=== PATIENT | female | born 1950 | race Native Hawaiian/Other Pacific Islander ===

== ENCOUNTER 2016-11-14 13:00 | Emergency (ER) | payer OTHER ==
[~2016-11-14] VITALS: Ht 154.9 cm; Wt 80.7 kg
[~2016-11-14 13:00] MED LIST: ALPR0.5T24 PO; ALTACE5 MG PO; ASPIRIN325 M1 PO; CIPR500T PO; DIPH25CA90 PO; DOCU100C10 PO; HYDR-2748 PO; LIPITOR80 MG PO; PAXIL40 MG PO; PEPCID20 MG PO
[2016-11-14 13:10] VITALS: BP 149/83; TEMP 98.4
[2016-11-14] MEDS ORDERED: HORIZANT300 MG PO (13:29)
[2016-11-14] MEDS ORDERED: ADVIL200 M1 OR (13:32)
[2016-11-14] MEDS ORDERED: ASPIRIN ADULT L81 MG OR (13:33)
[2016-11-14] MEDS ORDERED: blood pressure med PO (13:33)
== END 2016-11-14 14:05 | disposition home or self-care (01) ==
LOC: ED 13:00
DX: G89.29 Other chronic pain (principal); R60.9 Edema, unspecified
CPT/HCPCS: 99281

== ENCOUNTER 2017-02-04 10:20 | Outpatient (CLI) | payer OTHER ==
[~2017-02-04 10:20] MED LIST changes: +ADVIL200 M1 OR; +ASPIRIN ADULT L81 MG OR; +HORIZANT300 MG PO; +blood pressure med PO
[2017-02-04 11:33] LABS: PLATELET COUNT 250 K/uL (152-353)
[2017-02-04 11:50] LABS: POTASSIUM 3.2 mmol/L (3.6-5.2); SODIUM 142 mmol/L (136-145)
== END 2017-02-04 19:12 | disposition home or self-care (01) ==
LOC: LABW 10:20
PROVIDERS: Nurse Practitioner
DX: Z79.899 Other long term (current) drug therapy (principal); Z79.891 Long term (current) use of opiate analgesic; Z51.81 Encounter for therapeutic drug level monitoring
CPT/HCPCS: 36415; 80053; 80061; 80307; 84443; 85027; G0479

== ENCOUNTER 2017-07-15 10:54 | Emergency (ER) | payer OTHER ==
[~2017-07-15] VITALS: Ht 154.9 cm; Wt 79.4 kg
[2017-07-15 12:03] LABS: PLATELET COUNT 226 K/uL (152-353)
[2017-07-15 13:15] VITALS: BP 128/78; TEMP 98.2
== END 2017-07-15 13:17 | disposition home or self-care (01) ==
LOC: ED 10:54
PROVIDERS: Family Medicine
DX: J01.80 Other acute sinusitis (principal); N39.0 Urinary tract infection, site not specified
CPT/HCPCS: 36415; 81000; 85027; 99283

== ENCOUNTER 2018-03-05 08:59 | Emergency (ER) | payer OTHER ==
[~2018-03-05] VITALS: Ht 154.9 cm; Wt 75.3 kg
[2018-03-05 09:04] VITALS: TEMP 97.5
[2018-03-05 11:44] LABS: PLATELET COUNT 235 K/uL (152-353)
[2018-03-05 12:01] LABS: POTASSIUM 4.1 mmol/L (3.6-5.2)
[2018-03-05 15:23] VITALS: BP 132/78
== END 2018-03-05 15:25 | disposition home or self-care (01) ==
LOC: ED 08:59
PROVIDERS: Emergency Medicine
DX: N39.0 Urinary tract infection, site not specified (principal)
CPT/HCPCS: 36415; 80053; 81000; 85027; 87086; 87088; 99283

== ENCOUNTER 2018-04-29 11:02 | Outpatient (CLI) | payer OTHER | END 2018-04-29 23:14 | disposition home or self-care (01) | LOC: MAMMO 11:02 | DX: Z12.31 Encounter for screening mammogram for malignant neoplasm of breast (principal); Z78.0 Asymptomatic menopausal state ==

== ENCOUNTER 2019-01-20 12:11 | Emergency (ER) | payer OTHER ==
[~2019-01-20] VITALS: Ht 154.9 cm; Wt 75.3 kg
[2019-01-20 13:21] LABS: PLATELET COUNT 210 K/uL (152-353)
[2019-01-20 14:50] VITALS: BP 114/70; TEMP 97.8
== END 2019-01-20 14:50 | disposition home or self-care (01) ==
LOC: ED 12:11
PROVIDERS: Family Medicine
DX: J32.8 Other chronic sinusitis (principal); J06.9 Acute upper respiratory infection, unspecified; R05 Cough
CPT/HCPCS: 36415; 80053; 85027; 87502; 99283

== ENCOUNTER 2019-01-28 23:16 | Emergency (ER) | payer OTHER | END 2019-01-28 23:40 | disposition home or self-care (01) | LOC: ED 23:16 | DX: Z01.30 Encounter for examination of blood pressure without abnormal findings (principal) | CPT/HCPCS: 99281 ==

== ENCOUNTER 2019-03-12 11:44 | Observation (INO) | payer OTHER ==
[2019-03-12] VITALS (11 sets, daily range): BP systolic 143–183; BP diastolic 57–91; TEMP 97.4–97.7; Ht 154.9 cm; Wt 79.5 kg
[~2019-03-12] VITALS: Ht 154.9 cm; Wt 79.5 kg
[~2019-03-12 11:44] MED LIST changes: -ADVIL200 M1 OR; +ADVIL200 M1 PO
[2019-03-12 12:50] LABS: PLATELET COUNT 194 K/uL (152-353)
[2019-03-12 13:35] LABS: POTASSIUM 4.2 mmol/L (3.6-5.2); SODIUM 140 mmol/L (136-145)
[2019-03-12] MEDS ORDERED: ALTACE5 MG PO (21:34)
[2019-03-13 04:00] VITALS: BP 150/73; TEMP 97.8
[2019-03-13 08:00] VITALS: BP 141/63; TEMP 97.6
[2019-03-13 12:00] VITALS: BP 149/70; TEMP 97.9
[2019-03-16] MEDS ORDERED: CLOP75TA2 PO ×2 (09:03→09:05)
== END 2019-03-13 15:00 | disposition home or self-care (01) ==
LOC: ED 11:44 → MED/SURG 16:40
PROVIDERS: Family Medicine; ADMIT Internal Medicine
DX: J01.80 Other acute sinusitis (principal); R05 Cough; G45.8 Other transient cerebral ischemic attacks and related syndromes; I10 Essential (primary) hypertension; R10.13 Epigastric pain; M54.89 Other dorsalgia; M79.7 Fibromyalgia; I69.354 Hemiplegia and hemiparesis following cerebral infarction affecting left non-dominant side
CPT/HCPCS: 36415; 80053; 80061; 82550; 83036; 84484; 85027; 93005; 96372; 99220; 99283; G0378; J1650

== ENCOUNTER 2019-08-20 14:18 | Outpatient (CLI) | payer OTHER ==
[~2019-08-20 14:18] MED LIST changes: +CLOP75TA2 PO
== END 2019-08-20 23:21 | disposition home or self-care (01) ==
LOC: MAMMO 14:18
DX: Z12.31 Encounter for screening mammogram for malignant neoplasm of breast (principal)

== ENCOUNTER 2019-10-08 11:01 | Emergency (ER) | payer OTHER ==
[~2019-10-08] VITALS: Ht 154.9 cm; Wt 79.4 kg
[2019-10-08 12:40] LABS: PLATELET COUNT 185 K/uL (152-353)
[2019-10-08 12:41] LABS: POTASSIUM 3.4 mmol/L (3.6-5.2)
[2019-10-08 13:00] VITALS: BP 142/75; TEMP 97.6
== END 2019-10-08 14:45 | disposition home or self-care (01) ==
LOC: ED 11:01
PROVIDERS: Student in an Organized Health Care Education/Training Program
DX: N39.0 Urinary tract infection, site not specified (principal); B34.9 Viral infection, unspecified; E86.0 Dehydration
CPT/HCPCS: 80048; 81000; 83735; 85027; 87040; 87077; 87086; 87088; 87186; 87502; 87651; 93005; 99283

== ENCOUNTER 2020-01-14 15:01 | Outpatient (CLI) | payer OTHER | END 2020-01-14 19:04 | disposition home or self-care (01) | LOC: LABW 15:01 | DX: R05 Cough (principal); R50.9 Fever, unspecified; R06.02 Shortness of breath | CPT/HCPCS: 87502 ==

== ENCOUNTER 2020-04-06 17:52 | Outpatient (CLI) | payer OTHER | END 2020-04-06 19:19 | disposition home or self-care (01) | LOC: LAB 17:52 | DX: R05 Cough (principal) | CPT/HCPCS: 87070; 87205 ==

== ENCOUNTER 2021-12-06 14:19 | Emergency (ER) | payer OTHER ==
[~2021-12-06] VITALS: Ht 154.9 cm; Wt 79.4 kg
[2021-12-06 14:25] VITALS: TEMP 98.9
[2021-12-06 15:37] LABS: PLATELET COUNT 188 K/uL (152-353)
[2021-12-06 15:39] LABS: POTASSIUM 2.7 mmol/L (3.6-5.2)
[2021-12-06 19:15] VITALS: BP 130/94
== END 2021-12-06 19:43 | disposition short-term general hospital (02) ==
LOC: ED 14:19
PROVIDERS: Emergency Medicine
PROC: 0T9B70Z Drainage of Bladder with Drainage Device, Via Natural or Artificial Opening (ICD-10-PCS; principal; 2021-12-06)
DX: I24.9 Acute ischemic heart disease, unspecified (principal); U07.1 COVID-19; J12.82 Pneumonia due to coronavirus disease 2019; R50.9 Fever, unspecified
CPT/HCPCS: 36415; 36600; 51702; 80053; 81000; 82805; 83735; 84484; 85027; 85379; 85610; 85730; 87040; 87086; 87088; 87635; 93005; 96365; 96366; 96375; 99284; J1100; J1644; J1956; Q9963; U0003

== ENCOUNTER 2021-12-28 15:50 | Outpatient (CLI) | payer OTHER | END 2021-12-28 19:04 | disposition home or self-care (01) | LOC: US 15:50 | PROVIDERS: ATTEND Internal Medicine | DX: R60.0 Localized edema (principal) ==

== ENCOUNTER 2022-02-20 13:06 | Outpatient (CLI) | payer OTHER | END 2022-02-20 19:47 | disposition home or self-care (01) | LOC: US 13:06 | PROVIDERS: ATTEND Internal Medicine | DX: R60.0 Localized edema (principal); R22.41 Localized swelling, mass and lump, right lower limb ==

== ENCOUNTER 2022-03-21 13:32 | Outpatient (CLI) | payer OTHER ==
[2022-03-21 14:44] LABS: POTASSIUM 3.1 mmol/L (3.6-5.2)
== END 2022-03-21 19:14 | disposition home or self-care (01) ==
LOC: LABW 13:32
PROVIDERS: ATTEND Internal Medicine Cardiovascular Disease
DX: Z79.899 Other long term (current) drug therapy (principal); R06.09 Other forms of dyspnea
CPT/HCPCS: 36415; 80048; 83880

== ENCOUNTER 2022-04-26 14:35 | Outpatient (CLI) | payer OTHER ==
[2022-04-26 15:33] LABS: POTASSIUM 4.5 mmol/L (3.6-5.2)
== END 2022-04-26 20:37 | disposition home or self-care (01) ==
LOC: LABW 14:35
PROVIDERS: ATTEND Internal Medicine Cardiovascular Disease
DX: Z79.899 Other long term (current) drug therapy (principal)
CPT/HCPCS: 36415; 80048

== ENCOUNTER 2022-12-20 18:52 | Emergency (ER) | payer OTHER ==
[~2022-12-20] VITALS: Ht 154.9 cm; Wt 75.3 kg
[2022-12-20 19:44] LABS: PLATELET COUNT 163 K/uL (152-353)
[2022-12-20 19:57] LABS: POTASSIUM 3.7 mmol/L (3.6-5.2)
[2022-12-20 20:00] LABS: PARTIAL THROMBOPLASTIN TIME 24.2 SECONDS (24.5-33.6)
[2022-12-20 23:20] VITALS: BP 108/60; TEMP 97.8
== END 2022-12-20 23:20 | disposition short-term general hospital (02) ==
LOC: ED 18:52
PROVIDERS: Emergency Medicine
DX: I21.4 Non-ST elevation (NSTEMI) myocardial infarction (principal); R79.89 Other specified abnormal findings of blood chemistry; I10 Essential (primary) hypertension; I25.10 Atherosclerotic heart disease of native coronary artery without angina pectoris; Z11.52 Encounter for screening for COVID-19
CPT/HCPCS: 36415; 80053; 81002; 83880; 84484; 85027; 85379; 85610; 85730; 87502; 87635; 93005; 96365; 96366; 96375; 99285; J1644; Q9963; U0003

== ENCOUNTER 2023-12-14 11:18 | Observation (INO) | payer OTHER ==
[~2023-12-14] VITALS: Ht 154.9 cm; Wt 68.5 kg
[2023-12-14] VITALS (10 sets, daily range): BP systolic 74–117; BP diastolic 33–84; TEMP 96–98.7; Ht 154.9 cm; Wt 68.5 kg
[~2023-12-14 11:18] MED LIST changes: +BUSPIRONE10 MG PO; +DICLOFENAC SODIUM1 % TOP; +ENTRESTO 49-511 TAB PO; +FURO20TA67 PO; +GABAPENTIN PO; -HORIZANT300 MG PO; +LORA1TAB17 PO; +PEPCID40 MG PO; +ROPINIROLE HY0.25 MG PO; +SPIRONOLACT25 MG PO; +TIZA4TAB5 PO
[2023-12-14] MEDS ORDERED: NALOXONE HCL 2 MG ONE ×2 (11:28→11:31)
[2023-12-14] MEDS ORDERED: SODIUM CHLORIDE 0.9% 1,000 ML IV SCH ×3 (11:29→15:56)
[2023-12-14 12:46] LABS: PLATELET COUNT 137 K/uL (152-353)
[2023-12-14 12:47] LABS: POTASSIUM 4.6 mmol/L (3.6-5.2)
[2023-12-14 12:59] LABS: PARTIAL THROMBOPLASTIN TIME 32.5 SECONDS (23.9-36.7)
[2023-12-14] MEDS ORDERED: CEFTRIAXONE SODIUM 1,000 MG in SOD. CHLORIDE 0.9% 50 ML IVPB ONE (14:47)
[2023-12-14] MEDS ORDERED: SOD. CHLORIDE 0.9% 50 ML IV ONE (14:53)
[2023-12-14] MEDS ORDERED: CEFTRIAXONE SODIUM 1,000 MG IV ONE (14:54)
[2023-12-14] MEDS ORDERED: SODIUM CHLORIDE 0.9% 1,000 ML IV ONE (15:05)
[2023-12-14] MEDS ORDERED: SODIUM CHLORIDE 0.45% 1,000 ML IV SCH (15:58)
[2023-12-14] MEDS ORDERED: Ondansetron HCl 4 MG INJ IV PRN (17:30)
[2023-12-15 04:00] VITALS: BP 99/56; TEMP 98
[2023-12-15 08:00] VITALS: BP 110/39; TEMP 99.8
[2023-12-15] MEDS ORDERED: TORADOL 30MG/ML INJ IVP PRN (08:56)
[2023-12-15] MEDS ORDERED: PANTOPRAZOLE SODIUM 40 MG IVP SCH (09:00)
[2023-12-15] MEDS ORDERED: PANTOPRAZOLE SODIUM 40 MG INJ IV SCH (09:00)
[2023-12-15] MEDS ORDERED: ENOXAPARIN SODIUM 30 MG/0.3 ML SC SCH (09:00)
[2023-12-15 09:21] LABS: POTASSIUM 4.1 mmol/L (3.6-5.2)
[2023-12-15 09:45] LABS: PLATELET COUNT 160 K/uL (152-353)
[2023-12-15] MEDS ORDERED: LEVOFLOXACIN IN D5W 50 ML IVPB SCH (12:00)
[2023-12-15] MEDS ORDERED: CEFTRIAXONE SODIUM 1,000 MG in SOD. CHLORIDE 0.9% 50 ML IVPB SCH (15:00)
== END 2023-12-15 10:37 | disposition left against medical advice (07) ==
LOC: ED 11:18 → MED/SURG 14:26
PROVIDERS: ADMIT Nurse Practitioner Family; ATTEND Internal Medicine Endocrinology, Diabetes & Metabolism
DX: G92.8 Other toxic encephalopathy (principal); N30.00 Acute cystitis without hematuria; I95.89 Other hypotension; I50.30 Unspecified diastolic (congestive) heart failure; G89.4 Chronic pain syndrome; F41.9 Anxiety disorder, unspecified; G62.9 Polyneuropathy, unspecified; K21.9 Gastro-esophageal reflux disease without esophagitis; R41.82 Altered mental status, unspecified; E86.0 Dehydration; D72.828 Other elevated white blood cell count; R53.1 Weakness
CPT/HCPCS: 36415; 36600; 80048; 80053; 80307; 81000; 82805; 83605; 84484; 85027; 85379; 85610; 85730; 87077; 87086; 87088; 87186; 93005; 94760; 96360; 96361; 96365; 99221; 99284; G0378; J0696; J1650; J1885; J2310; J3490